=== PATIENT | female | born 1975 | race Caucasian/White ===

== ENCOUNTER 2017-02-01 09:08 | Emergency (ER) | payer OTHER ==
[2017-02-01 09:20] VITALS: BP 104/64
--- NOTE | 2017-02-01 10:47 | UC ---
Isaura Zhou Rebecca, scribed for Carlnee Macdonald MD on 02/01/17 at 1020 . General HPI - HPI Summary HPI Summary: Pt is a 41 y/o F who presents to [facility] c/o L swollen glands. Pt reports waking up yesterday and today with swollen L glands and associated pain. She took Ibuprofen today, which significantly reduced pain to being ranked 2/10 and characterized as throbbing. Pain alleviated by Ibuprofen, aggravated by mouth opening. Additionally c/o myalgias (yesterday), , L ear pain (resolved from Ibuprofen), difficulty swallowing second to pain in left cheek and inability to open mouth completely secondary to pain in the jaw. Denies N/V, fever, chills, muffled hearing, ear drainage, dizziness, dental pain or rash. Negative recent trauma. Prior Hx of "dental issue" 4 years ago. Allergy to Amoxicillin with an unknown reaction. No trauma No h/o similar No fever, chills, rash Patient medications reviewed this visit. - History of Current Complaint Chief Complaint: UCGeneralIllness Stated Complaint: SWOLLEN GLANDS Time Seen by Provider: 02/01/17 10:18 Hx Obtained From: Patient Onset/Duration: Lasting Days - Yesterday, Still Present Onset Severity: Moderate Current Severity: Mild Pain Intensity: 2 Character: Throbbing Aggravating: Nothing Alleviating: Ibuprofen Associated Signs & Symptoms: Positive: Other - L swollen glands, L ear pain ( resolved from Ibuprofen), myalgias, diffuse pruritis, difficulty swallowing, inability to open mouth completely (secondary to jaw pain). Negative: Dizziness , Fever, Nausea, Vomiting - Allergy/Home Medications Allergies/Adverse Reactions: Allergies Allergy/AdvReac Type Severity Reaction Status Date / Time Amoxicillin [From Augmentin] Allergy Mild Swelling Verified 05/16/14 10:25 Clavulanic Acid Allergy Mild Swelling Verified 05/16/14 10:25 [From Augmentin] PMH/Surg Hx/FS Hx/Imm Hx - Additional Past Medical History Additional PMH: "dental issue" 4 years ago Previously Healthy: Yes - Surgical History Surgical History: None - Family History Known Family History: Positive: Other - [place] (father) - Social History Occupation: Employed Full-time Alcohol Use: Weekly Substance Use Type: None Smoking Status (MU): Former Smoker Type: Cigarettes Amount Used/How Often: 1 cig/week Length of Time of Smoking/Using Tobacco: smoked then stopped; smoking now for 1 year Have You Smoked in the Last Year: No Review of Systems Constitutional: Negative Skin: Negative Eyes: Negative ENT: Ear Ache - L ear pain (resolved by Ibuprofen), Other - Swollen L cheek gland, pain with jaw opening in same location Respiratory: Negative Cardiovascular: Negative Gastrointestinal: Negative Genitourinary: Negative Motor: Negative Neurovascular: Negative Musculoskeletal: Myalgia Neurological: Negative Psychological: Negative All Other Systems Reviewed And Are Negative: Yes Physical Exam Triage Information Reviewed: Yes Appearance: Well-Appearing, Pain Distress - mild discomfort with exam Vital Signs: Initial Vital Signs Temp 99.3 F 02/01/17 09:13 Pulse 65 02/01/17 09:13 Resp 18 02/01/17 09:13 BP 104/64 02/01/17 09:13 Pulse Ox 100 02/01/17 09:13 Vital Signs Reviewed: Yes Eye Exam: Normal Eyes: Positive: Conjunctiva Clear ENT Exam: Normal ENT: Positive: Hearing grossly normal, Pharynx normal, TMs normal, Other: - TM x 2 clear - no fluid, erythema turbinates wnl No erythema, exudate, dental pain No pain mastoid, tragus Pt with mild edema and tenderness along left parotid gland. No warm. No palpable stone along salivary tract No TMJ pain. Negative : Nasal congestion, Tonsillar swelling, Tonsillar exudate, Muffled/hoarse voice Dental Exam: Normal Neck exam: Normal, Other - No lymphadenopathy posterior auricular, submandibular Neck: Positive: Supple, Nontender, No Lymphadenopathy Respiratory Exam: Normal Respiratory: Positive: Chest non-tender, Lungs clear, Normal breath sounds Cardiovascular Exam: Normal Cardiovascular: Positive: RRR, No Murmur Abdominal Exam: Normal Abdomen Description: Positive: Nontender, No Organomegaly, Soft Bowel Sounds: Positive: Present Musculoskeletal Exam: Normal Neurological Exam: Normal Psychological Exam: Normal Skin Exam: Normal Course/Dx - Course Course Of Treatment: PT with progressive discomfort and mild edema left parotid. No palpable salivary stone. diff includes early cellulitis. recommend clind, lemon drop, heat. dental f/u. return precautions reviewed. Pt comfortable and in agreement wiht nikunj - Differential Dx - Multi-Symptom Provider Diagnoses: parotid gland inflammation Discharge - Discharge Plan Condition: Stable Disposition: HOME Prescriptions: Clindamycin CAP* [Cleocin 150 MG CAP*] 300 mg PO TID #21 cap Patient Education Materials: Sialoadenitis (ED) Referrals: Amrita Houston MD [Primary Care Provider] - Additional Instructions: - sTay well hydrated. Drink plenty of non-alcoholic, non-caffinated beverages - Take antibiotics as prescribed. These antibiotics may cause diarrhea. It is recommended you eat yogurt or take pro-biotics on the day you take this medication to decrease diarrhea - apply warm soaks to your cheek 2-3 times a day - As your doctor discussed, your symptoms may be related to a stone in your saliva duct - it is recommended you eat sour foods, suck on lemon drop candies, to promote saliva production - Call your doctor to schedule a follow-up appointment. Call your doctor or go to the emergency department for increased pain, fever, swelling, reddness or any other questions or concerns The documentation as recorded by the Isaura esparza Rebecca accurately reflects the service I personally performed and the decisions made by me, Carlene Macdonald MD.
== END 2017-02-01 11:03 | disposition home or self-care (01) ==
LOC: UCEAST 09:08
DX: K11.20 Sialoadenitis, unspecified (principal)
CPT/HCPCS: 99212; G0463

== ENCOUNTER 2019-08-26 14:05 | Emergency (ER) | payer OTHER ==
[2019-08-26 14:36] VITALS: BP 135/63
[2019-08-26 14:57] LABS: Influenza A Molecular Negative (Negative); Influenza B Molecular Negative (Negative)
--- NOTE | 2019-08-26 15:02 | UC ---
Throat Pain/Nasal Jin HPI - HPI Summary HPI Summary: 44-year-old woman comes in with chief complaint of 5 days of upper respiratory tract infection symptoms. She's had minimal rhinorrhea. Does have sore throat. No cough or chest congestion. She has had fevers and she's treated herself with ibuprofen which did help with the fevers. No shortness of breath. No chest congestion. - History of Current Complaint Chief Complaint: UCGeneralIllness Stated Complaint: SORE THROAT,LETHARGIC,BODY ACHES Time Seen by Provider: 08/26/19 14:44 Hx Last Menstrual Period: 08/12/19 Pain Intensity: 4 - Allergies/Home Medications Allergies/Adverse Reactions: Allergies Allergy/AdvReac Type Severity Reaction Status Date / Time amoxicillin [From Augmentin] Allergy Mild Swelling Verified 08/26/19 14:30 clavulanic acid Allergy Mild Swelling Verified 08/26/19 14:30 [From Augmentin] Home Medications: Home Medications NK [No Home Medications Reported] 08/26/19 [History Confirmed 08/26/19] PMH/Surg Hx/FS Hx/Imm Hx Previously Healthy: Yes - Surgical History Surgical History: None - Family History Known Family History: Positive: Other - [place] (father) - Social History Alcohol Use: Occasionally Substance Use Type: None Smoking Status (MU): Former Smoker Type: Cigarettes Amount Used/How Often: 1 cig/week Length of Time of Smoking/Using Tobacco: 5 years Have You Smoked in the Last Year: No When Did the Patient Quit Smoking/Using Tobacco: 2014 Review of Systems All Other Systems Reviewed And Are Negative: Yes Constitutional: Positive: Fever, Other - see hpi Skin: Positive: Negative Eyes: Positive: Negative ENT: Positive: Sore Throat, Nasal Discharge Respiratory: Positive: Negative Cardiovascular: Positive: Negative Gastrointestinal: Positive: Negative Motor: Positive: Negative Neurovascular: Positive: Negative Musculoskeletal: Positive: Myalgia Neurological: Positive: Headache Psychological: Positive: Negative Is Patient Immunocompromised?: No Physical Exam Triage Information Reviewed: Yes Appearance: Well-Appearing, No Pain Distress, Well-Nourished Vital Signs: Initial Vital Signs Temp 99.4 F 08/26/19 14:30 Pulse 67 08/26/19 14:30 Resp 18 08/26/19 14:30 BP 135/63 08/26/19 14:30 Pulse Ox 97 08/26/19 14:30 Vital Signs Reviewed: Yes Eye Exam: Normal Eyes: Positive: Conjunctiva Clear ENT: Positive: Pharynx normal, TMs normal Neck: Positive: Supple Respiratory: Positive: Lungs clear, Normal breath sounds, No respiratory distress Cardiovascular: Positive: RRR Musculoskeletal: Positive: Strength Intact, ROM Intact Neurological: Positive: Alert, Muscle Tone Normal Psychological: Positive: Normal Response To Family, Age Appropriate Behavior Skin Exam: Normal Throat Pain/Nasal Course/Dx - Differential Dx/Diagnosis Provider Diagnosis: Upper respiratory infection Discharge ED - Sign-Out/Discharge Documenting (check all that apply): Patient Departure All imaging exams completed and their final reports reviewed: No Studies - Discharge Plan Condition: Stable Disposition: HOME Patient Education Materials: Upper Respiratory Infection (ED) Referrals: Amrita Houston MD [Primary Care Provider] - Additional Instructions: FOLLOW UP WITH YOUR DOCTOR IF NOT COMPLETELY IMPROVED. GET REEVALUATED SOONER IF NOT IMPROVED OR WORSE OR ANY QUESTIONS OR CONCERNS. - Billing Disposition and Condition Condition: STABLE Disposition: Home
== END 2019-08-26 15:39 | disposition home or self-care (01) ==
LOC: UCEAST 14:05
DX: J06.9 Acute upper respiratory infection, unspecified (principal); Z88.0 Allergy status to penicillin; Z87.891 Personal history of nicotine dependence
CPT/HCPCS: 87651; 99211; G0463